=== PATIENT | female | born 1980 | race Caucasian/White ===

== ENCOUNTER 2020-09-13 15:57 | Outpatient (CLI) | payer MEDICAID ==
[~2020-09-13] VITALS: Ht 166.4 cm; Wt 84.5 kg
[~2020-09-13 15:57] MED LIST: CLIN150C15 PO; TRAM50TA2 PO
[2020-09-13 16:06] VITALS: BP 133/87
[2020-09-13 18:03] LABS: MICROSCOPIC INDICATED
[2020-09-13 18:06] LABS: BASOPHILS % (AUTO) 1 % (0-1); EOSINOPHILS % (AUTO) 1 % (1-7); LYMPHOCYTES % (AUTO) 20 % (22-44); MEAN CORPUSCULAR HEMOGLOBIN 28.2 pg (27.0-34.8); MEAN CORPUSCULAR HGB CONC 33.3 g/dL (32.4-35.8); MEAN PLATELET VOLUME 9.2 fL (7.4-10.4); MONOCYTES % (AUTO) 5 % (2-9); NEUTROPHILS % (AUTO) 73 % (42-75); PLATELET COUNT 236 x10^3/uL (130-400); RED BLOOD COUNT 4.07 x10^6/uL (3.82-5.3); RED CELL DISTRIBUTION WIDTH 14.2 % (9.6-15.2)
[2020-09-13 18:07] LABS: AMPHETAMINE SCREEN, URINE Positive (Negative); BARBITURATE SCREEN, URINE Negative (Negative); BENZODIAZEPINE SCREEN, URINE Negative (Negative); CANNABINOID SCREEN, URINE Negative (Negative); COCAINE SCREEN, URINE Negative (Negative); METHADONE SCREEN, URINE Negative (Negative); OPIATE SCREEN, URINE Negative (Negative)
[2020-09-13 18:08] LABS: MD NO
[2020-09-13 18:09] LABS: PROTEIN/CREATININE RATIO,URINE < 75 (0-200); TOTAL PROTEIN,URINE RANDOM < 5 mg/dL (0-12)
[2020-09-13 18:17] LABS: ALANINE AMINOTRANSFERASE 25 U/L (12-78); ALBUMIN 2.4 g/dL (3.4-5.0); ANION GAP 2 mmol/L (5-15); CALCIUM 8.3 mg/dL (8.5-10.1); CHLORIDE 111 mmol/L (98-107); CREATININE 0.64 mg/dL (0.55-1.02)
[2020-09-13 18:20] LABS: ALKALINE PHOSPHATASE 205 U/L (45-117); BILIRUBIN,TOTAL 0.2 mg/dL (0.2-1.0); TOTAL PROTEIN 6.1 g/dL (6.4-8.2)
== END 2020-09-13 19:30 | disposition left against medical advice (07) ==
LOC: LDOP 15:57
PROVIDERS: ATTEND Obstetrics & Gynecology
DX: O46.93 Antepartum hemorrhage, unspecified, third trimester (principal); Z3A.39 39 weeks gestation of pregnancy
CPT/HCPCS: 36415; 59025; 80053; 80307; 81001; 82570; 84156; 84550; 85025; 86592; 86762; 86850; 86900; 87340; 87806; G0475

== ENCOUNTER 2020-09-18 08:23 | Inpatient (IN) | payer MEDICAID ==
[~2020-09-18] VITALS: Ht 175.3 cm; Wt 85.0 kg
[2020-09-20] MEDS ORDERED: OXYTOCIN 30U/ 0.9% NaCL 500ML 500 ML IV PRN (03:00)
[2020-09-20] MEDS ORDERED: ONDANSETRON 2MG/ML, 2ML IVPush PRN ×2 (03:00→06:30)
[2020-09-20] MEDS ORDERED: D5%-LACTATED RINGERS 1,000 ML IV SCH (03:00)
[2020-09-20] MEDS ORDERED: OXYTOCIN 30U/ 0.9% NaCL 500ML 500 ML IV ONE (03:00)
[2020-09-20] MEDS ORDERED: CALCIUM CARBONATE 500 MG TAB.CHEW PO PRN (03:00)
[2020-09-20] MEDS ORDERED: FENTANYL PF 100 MCG/2ML IV PRN (03:00)
[2020-09-20] MEDS ORDERED: SODIUM CHLORIDE FLUSH 10ML SYR IVF PRN (03:00)
[2020-09-20] MEDS ORDERED: METOCLOPRAMIDE 5 MG/ML, 2ML IVPush PRN (03:00)
[2020-09-20] MEDS ORDERED: TERBUTALINE 1 MG/ML, 1ML SQ PRN (03:00)
[2020-09-20] MEDS ORDERED: SODIUM CITRATE/CITRIC ACID 30 ML UDC PO PRN (03:00)
[2020-09-20] MEDS ORDERED: TERBUTALINE 1 MG/ML, 1ML IVPush PRN (03:00)
[2020-09-20] MEDS ORDERED: FENTANYL PF 100 MCG/2ML IVPush PRN (03:00)
[2020-09-20] MEDS ORDERED: ALUMINUM/MAG/SIMETHICONE 30 ML UDC PO PRN (03:00)
[2020-09-20 03:17] LABS: BASOPHILS % (AUTO) 1 % (0-1); EOSINOPHILS % (AUTO) 1 % (1-7); LYMPHOCYTES % (AUTO) 20 % (22-44); MEAN CORPUSCULAR HEMOGLOBIN 28.3 pg (27.0-34.8); MEAN CORPUSCULAR HGB CONC 33.6 g/dL (32.4-35.8); MEAN PLATELET VOLUME 9.3 fL (7.4-10.4); MONOCYTES % (AUTO) 4 % (2-9); NEUTROPHILS % (AUTO) 74 % (42-75); PLATELET COUNT 254 x10^3/uL (130-400); RED BLOOD COUNT 4.31 x10^6/uL (3.82-5.3); RED CELL DISTRIBUTION WIDTH 14.7 % (9.6-15.2)
[2020-09-20 03:19] LABS: MD NO
[2020-09-20 03:32] VITALS: BP 139/83
[2020-09-20 03:43] LABS: AMPHETAMINE SCREEN, URINE Negative (Negative); BARBITURATE SCREEN, URINE Negative (Negative); BENZODIAZEPINE SCREEN, URINE Negative (Negative); CANNABINOID SCREEN, URINE Negative (Negative); COCAINE SCREEN, URINE Negative (Negative); METHADONE SCREEN, URINE Negative (Negative); OPIATE SCREEN, URINE Negative (Negative)
[2020-09-20] MEDS: LACTATED RINGERS 1,000 ML IV SCH ×2 (03:43→06:12)
[2020-09-20] MEDS ORDERED: OXYTOCIN 30U/ 0.9% NaCL 500ML 500 ML ONE ×2 (03:50→18:59)
[2020-09-20] MEDS ORDERED: MISOPROSTOL 200 MCG TABLET ONE (03:50)
[2020-09-20] MEDS ORDERED: NEWBORN KIT ONE ×2 (03:50→19:00)
[2020-09-20] MEDS ORDERED: FENTANYL PF 100 MCG/2ML ONE ×2 (03:50→05:34)
[2020-09-20] MEDS ORDERED: LIDOCAINE 1%, 20ML ONE (03:50)
[2020-09-20] MEDS: VANCOMYCIN PMX 1GM/200ML 200 ML IVPB SCH ×2 (03:53→15:50)
[2020-09-20] MEDS ORDERED: FENTANYL/BUPIV./NS/PF 250 ML EPIDCONT ONE (05:44)
[2020-09-20] MEDS ORDERED: BUPIVACAINE 0.25% ONE (06:15)
[2020-09-20] MEDS ORDERED: FENTANYL/BUPIV./NS/PF 250 ML EPIDCONT SCH (06:30)
[2020-09-20] MEDS ORDERED: EPHEDRINE 50 MG/ML, 1ML IVPush PRN (06:30)
[2020-09-20] MEDS ORDERED: LACTATED RINGERS 1,000 ML IVBOLUS PRN (06:30)
[2020-09-20] MEDS ORDERED: DIPHENHYDRAMINE 50 MG/ML, 1ML IVPush PRN (06:30)
[2020-09-20] MEDS ORDERED: LACTATED RINGERS 1,000 ML IV SCH (06:30)
[2020-09-20] MEDS ORDERED: NALOXONE 0.4 MG/ML, 1ML IVPush PRN (06:30)
[2020-09-20] MEDS: NICOTINE 21 MG/24 HR PATCH.TD24 TD SCH (09:49)
[2020-09-20] MEDS ORDERED: DIPHENHYDRAMINE 50 MG/ML, 1ML ONE (15:06)
[2020-09-20] MEDS ORDERED: METHYLERGONOVINE 0.2 MG/ML IM PRN (19:30)
[2020-09-20] MEDS ORDERED: HYDROcodone/APAP 5/325 TABLET PO PRN ×2 (19:30)
[2020-09-20] MEDS ORDERED: OXYTOCIN 10 UNITS/ML, 1ML IM PRN (19:30)
[2020-09-20] MEDS ORDERED: SIMETHICONE 80 MG CHEW TAB PO PRN (19:30)
[2020-09-20] MEDS: OXYTOCIN 30U/ 0.9% NaCL 500ML 500 ML IV SCH (19:30)
[2020-09-20] MEDS ORDERED: MISOPROSTOL 200 MCG TABLET PR PRN (19:30)
[2020-09-20] MEDS ORDERED: CARBOPROST TROMETHAMINE 250 MCG/ML, 1ML IM PRN (19:30)
[2020-09-20] MEDS ORDERED: ONDANSETRON 2MG/ML, 2ML IV PRN (19:30)
[2020-09-20] MEDS ORDERED: ACETAMINOPHEN 325 MG TABLET PO PRN (19:30)
[2020-09-20] MEDS ORDERED: IBUPROFEN 600 MG TABLET ONE (19:39)
[2020-09-20] MEDS: IBUPROFEN 600 MG TABLET PO PRN (20:00)
[2020-09-20] MEDS ORDERED: LABETALOL 100 MG TABLET ONE (20:40)
[2020-09-20] MEDS: LABETALOL 100 MG TABLET PO SCH (20:45)
[2020-09-20 21:44] LABS: ALANINE AMINOTRANSFERASE 27 U/L (12-78); ALBUMIN 2.2 g/dL (3.4-5.0); ANION GAP 5 mmol/L (5-15); CALCIUM 7.8 mg/dL (8.5-10.1); CHLORIDE 112 mmol/L (98-107); CREATININE 0.95 mg/dL (0.55-1.02)
[2020-09-20 21:47] LABS: ALKALINE PHOSPHATASE 205 U/L (45-117); BILIRUBIN,TOTAL 0.3 mg/dL (0.2-1.0); TOTAL PROTEIN 5.5 g/dL (6.4-8.2)
[2020-09-20 22:09] VITALS: BP 127/72
[2020-09-21 00:05] VITALS: BP 109/66
[2020-09-21] MEDS: IBUPROFEN 600 MG TABLET PO PRN ×3 (02:22→20:43)
[2020-09-21 02:28] LABS: MICROSCOPIC INDICATED
[2020-09-21 02:36] LABS: CREATININE,URINE RANDOM 94.1 mg/dL
[2020-09-21] MEDS: OXYTOCIN 30U/ 0.9% NaCL 500ML 500 ML IV SCH ×2 (03:55→15:30)
[2020-09-21 04:00] VITALS: BP 122/74
[2020-09-21 05:35] LABS: BASOPHILS % (AUTO) 0 % (0-1); EOSINOPHILS % (AUTO) 1 % (1-7); LYMPHOCYTES % (AUTO) 18 % (22-44); MEAN CORPUSCULAR HEMOGLOBIN 28.4 pg (27.0-34.8); MEAN CORPUSCULAR HGB CONC 33.6 g/dL (32.4-35.8); MEAN PLATELET VOLUME 9.5 fL (7.4-10.4); MONOCYTES % (AUTO) 6 % (2-9); NEUTROPHILS % (AUTO) 76 % (42-75); PLATELET COUNT 211 x10^3/uL (130-400); RED CELL DISTRIBUTION WIDTH 14.5 % (9.6-15.2)
[2020-09-21 05:39] LABS: MD NO
[2020-09-21 08:00] VITALS: BP 123/62
[2020-09-21] MEDS: NICOTINE 21 MG/24 HR PATCH.TD24 TD SCH (08:24)
[2020-09-21] MEDS: LABETALOL 100 MG TABLET PO SCH ×2 (08:25→18:05)
[2020-09-21] MEDS: PRENATAL VIT/IRON/FA 1 EACH TABLET PO SCH (08:59)
[2020-09-21 12:20] VITALS: BP 132/81
[2020-09-21 16:20] VITALS: BP 133/78
[2020-09-21 20:00] VITALS: BP 136/80
[2020-09-21] MEDS: DOCUSATE 100 MG CAPSULE PO PRN (20:43)
[2020-09-22] MEDS: OXYTOCIN 30U/ 0.9% NaCL 500ML 500 ML IV SCH (01:30)
[2020-09-22 02:36] VITALS: BP 134/81
[2020-09-22 06:00] VITALS: BP 122/77
[2020-09-22] MEDS: LABETALOL 100 MG TABLET PO SCH (08:43)
[2020-09-22] MEDS: PRENATAL VIT/IRON/FA 1 EACH TABLET PO SCH (08:44)
[2020-09-22] MEDS: DOCUSATE 100 MG CAPSULE PO PRN (08:44)
[2020-09-22] MEDS: NICOTINE 21 MG/24 HR PATCH.TD24 TD SCH (08:44)
[2020-09-22] MEDS: IBUPROFEN 600 MG TABLET PO PRN (08:44)
[2020-09-22] MEDS ORDERED: SENN-92 PO (13:47)
[2020-09-22] MEDS ORDERED: HYDR-1067 PO (13:47)
[2020-09-22] MEDS ORDERED: IBUP-1222 PO (13:47)
[2020-09-22] MEDS ORDERED: LABE100T6 PO (14:39)
== END 2020-09-22 15:02 | disposition home or self-care (01) | DRG 807 ==
LOC: LDIP 09-20 02:37 → 2NW 09-20 20:53
PROVIDERS: ADMIT Obstetrics & Gynecology; ATTEND Obstetrics & Gynecology
PROC: 10E0XZZ Delivery of Products of Conception, External Approach (ICD-10-PCS; principal; 2020-09-20)
PROC: 10907ZC Drainage of Amniotic Fluid, Therapeutic from Products of Conception, Via Natural or Artificial Opening (ICD-10-PCS; 2020-09-20)
PROC: 3E0D7GC Introduction of Other Therapeutic Substance into Mouth and Pharynx, Via Natural or Artificial Opening (ICD-10-PCS; 2020-09-20)
PROC: 3E0R3BZ Introduction of Anesthetic Agent into Spinal Canal, Percutaneous Approach (ICD-10-PCS; 2020-09-20)
PROC: 00HU33Z Insertion of Infusion Device into Spinal Canal, Percutaneous Approach (ICD-10-PCS; 2020-09-20)
DX: O77.0 Labor and delivery complicated by meconium in amniotic fluid (principal); Z37.0 Single live birth; O76 Abnormality in fetal heart rate and rhythm complicating labor and delivery; O13.4 Gestational [pregnancy-induced] hypertension without significant proteinuria, complicating childbirth; O99.824 Streptococcus B carrier state complicating childbirth; Z3A.40 40 weeks gestation of pregnancy; O99.334 Smoking (tobacco) complicating childbirth; O66.0 Obstructed labor due to shoulder dystocia; Z20.822 Contact with and (suspected) exposure to COVID-19; O69.81X0 Labor and delivery complicated by cord around neck, without compression, not applicable or unspecified; F17.200 Nicotine dependence, unspecified, uncomplicated; Z88.0 Allergy status to penicillin; Z91.013 Allergy to seafood
CPT/HCPCS: 36415; J7121; 80053; 80307; 81001; 82570; 84156; 84550; 85025; 86592; 86850; 86900; 87635; G0378; J3010; J3370; J1200; J2590; J7120